=== PATIENT | male | born 1955 | race Caucasian/White ===

== ENCOUNTER 2022-01-08 15:30 | Observation (INO) | payer MEDICARE, SELFPAY ==
--- NOTE | 2022-01-08 | ECG_ITS ---
Test Reason : CP Blood Pressure : / mmHG Vent. Rate : 062 BPM Atrial Rate : 062 BPM P-R Int : 160 ms QRS Dur : 098 ms QT Int : 422 ms P-R-T Axes : 056 035 034 degrees QTc Int : 428 ms Normal sinus rhythm Nonspecific T wave abnormality Abnormal ECG No previous ECGs available Referred By: Generic ED Physician Electronically Signed By:JUAREZ AGUIRRE MD
--- NOTE | ~2022-01-08 | CT_ITS ---
EXAMINATION: CT ANGIOGRAM OF THE CHEST WITH AND WITHOUT CONTRAST (CT PULMONARY ANGIOGRAM FOR PE) CLINICAL INFORMATION: Chest pain and elevated d-dimer. COMPARISON: Chest radiograph done earlier today at 6:51 PM. TECHNIQUE: Prior to contrast administration, noncontrast localization images were obtained. Subsequently, multidetector volumetric imaging was performed from the thoracic inlet to below the diaphragms following the administration of 71 mL Omnipaque 350 intravenous contrast. No contrast reaction reported Sagittal, coronal, and MIP oblique sagittal reformatted images were obtained on the CT workstation, uploaded to PACS, and reviewed. This CT examination was performed using dose optimization techniques as appropriate, variously including the following: *Automated exposure control *Adjustment of mA and/or kV according to patient size (this includes techniques or standardized protocols for targeted exams where dose is matched to indication/reason for exam; i.e. extremities or head) *Use of iterative reconstruction technique Total exam dose-length product 449 mGy-cm FINDINGS: QUALITY OF STUDY/CONTRAST BOLUS: Satisfactory. PULMONARY ARTERIES: Segmental and subsegmental pulmonary emboli in the left lower lobe, right upper lobe, right middle lobe, and right lower lobe. No central pulmonary emboli. THORACIC AORTA: No aneurysm or dissection. LUNG: No focal consolidation or groundglass disease. No suspicious pulmonary nodules. There is a fissural lymph node node along the right minor fissure (7:329). The central airways are patent. PLEURA: No pleural effusion or pneumothorax. MEDIASTINUM: The right heart chambers are prominent. There is no septal bowing. No pericardial effusion. No mediastinal or hilar lymphadenopathy. Normal appearance of the thyroid gland. Coronary calcifications. CHEST WALL/AXILLA: No axillary or internal mammary lymphadenopathy. OSSEOUS STRUCTURES: No acute or suspicious osseous abnormality. UPPER ABDOMEN: Unremarkable. No reflux of contrast into the hepatic veins to suggest elevated right heart pressures. CT/CT angio chest PE protocol IMPRESSION: Multifocal segmental and subsegmental pulmonary emboli. The right heart chambers are prominent which raises the possibility of increased right-sided heart pressures. However, there is no definite septal bowing or reflux of contrast into the hepatic veins. If clinical pertinent, correlation with an echocardiogram could be obtained. No focal airspace opacities. This critical result was discussed with Alisia BLACKBURN at 01/08/2022 9:39 PM and it was ascertained that the content and urgency of the report was understood at the time of direct communication. VTE: positive
--- NOTE | ~2022-01-08 | US_ITS ---
EXAMINATION: US VENOUS ULTRASOUND WITH DOPPLER LOWER EXTREMITY, BILATERAL CLINICAL INFORMATION: Swelling status post recent travel COMPARISON: None TECHNIQUE: Ultrasound of the deep veins is performed from the hip to the calf with compression sonography and color and pulse Doppler assessment. Spectral analysis with color-flow imaging is performed. FINDINGS: RIGHT: There is normal venous compression and respiratory variation and augmented flow. The visualized common femoral vein, superficial femoral vein, profunda femoral vein, popliteal vein, and the trifurcation region shows no evidence of deep venous thrombosis. No Mullins's cyst. LEFT: There is normal venous compression and respiratory variation and augmented flow. The visualized common femoral vein, superficial femoral vein, profunda femoral vein, popliteal vein, and the trifurcation region shows no evidence of deep venous thrombosis. There is no significant popliteal fossa cyst. If the patient's symptoms persist, followup ultrasound in 5 days 7 days might be of value to exclude proximal propagation from a non-visualized calf vein. US/US venous duplex LE BI IMPRESSION: No DVT demonstrated in both lower extremity. Right-sided Mullins's cyst.
--- NOTE | ~2022-01-08 | XR_ITS ---
EXAMINATION: XR CHEST CLINICAL INFORMATION: Left-sided chest pain. COMPARISON: None. TECHNIQUE: 2 views of the chest were obtained. FINDINGS: Normal appearance of the cardiomediastinal silhouette. No focal airspace opacities, pleural effusions or pneumothorax. No acute osseous abnormalities. XR/XR chest 2V IMPRESSION: No acute cardiopulmonary findings.
[2022-01-08 15:39] VITALS: BP 148/85; PULSE 66; RESP 18; TEMP 36.2; O2SAT 100; BMI 36.1
[2022-01-08 16:03] LABS: Basophils Percent Auto 0.4 % (0-2); Eosinophils Absolute Auto 0.1 X10*3/uL (0.0-0.4); Eosinophils Percent Auto 1.3 % (0-4); Hematocrit 43.9 % (42.0-52.0); Hemoglobin 14.7 g/dl (14.0-18.0); Imm Gran Abs Auto 0.03 X10*3/uL (0.00-0.03); Imm Gran Pct Auto 0.4 % (0.0-0.4); Lymphocytes Absolute Auto 1.6 X10*3/uL (1.2-4.9); Lymphocytes Percent Auto 21.3 % (20-40); MANUAL DIFF FLAG NO; Mean Corpuscular HGB Conc 33.5 g/dl (31.0-36.0); Mean Corpuscular Hemoglobin 29.2 pg (27.0-33.0); Mean Corpuscular Volume 87.3 fL (80.0-98.0); Mean Platelet Volume 10.3 fL (9.4-12.4); Monocytes Absolute Auto 0.7 X10*3/uL (0.1-1.2); Monocytes Percent Auto 8.7 % (2-11); Neutrophils Absolute Auto 5.2 x10*3/uL (2.0-8.3); Neutrophils Percent Auto 67.9 % (45-73); Platelet Count 263 X10*3/uL (160-400); Red Blood Count 5.03 X10*6/uL (4.60-5.80); Red Cell Distribution Width 13.2 % (11.0-16.0); White Blood Count 7.7 X10*3/uL (4.8-10.8)
[2022-01-08 16:16] LABS: Anion Gap 12 (12-20); Blood Urea Nitrogen 14 mg/dL (9-16); Calcium 10.1 mg/dL (8.4-10.2); Carbon Dioxide 32 mmol/L (22-29); Chloride 100 mmol/L (96-108); Creatinine Clr Calc Pharmacy 92.6; Estimated Glomerular Filt Rate > 60; Glucose Random 100 mg/dL (60-115); Potassium 3.5 mmol/L (3.3-5.1); Sodium 140 mmol/L (135-145)
[2022-01-08 16:24] LABS: Troponin-I High Sensitivity 13.1 ng/L (<3.5-35.0)
--- NOTE | 2022-01-08 19:17 | ED_ITS ---
HPI - Chest Pain General Chief Complaint: Chest Pain Stated Complaint: chest pain Time Seen by Provider: 01/08/22 18:29 Source: patient and family Mode of arrival: ambulatory Limitations: no limitations History of Present Illness HPI narrative: 66-year-old male with a past medical history of hypertension and spinal stenosis who currently lives in [place] who recently traveled from [place] to [place] approximately 16 hours then was traveling back from [place] to [place] when he started having left-sided chest pain that he reported as achy/dull in sensation that lasted approximately 4 hours from 1 to approximately 16:00 prior to arrival which has completely resolved at this time. Reports that he was driving when this occurred. He reports that he has been suffering from lower extremity edema any has been having some bilateral calf pain. Otherwise He denied any other symptoms related to this such as dizziness, changes in vision, diaphoresis, headaches, jaw pain, nausea/vomiting, radiation of the chest pain, shoulder pain, paresthesias, palpitations, shortness of breath, dyspnea on exertion, orthopnea, cough, abdominal pain, worsening back pain, any estrogen usage, history of DVT or PE, history of MA or stroke, ever having this chest pain in the past, recent procedures or surgery or any other symptoms complaints or concerns at this time. He reports that his brother has had multiple cardiac stents. He reports his brother is older than him. MD complaint: chest pain Pertinent past history: other (See above) Onset (ago): hour(s) (Prior to arrival) Timing of current episode: episodic and now resolved Prior episodes: No Onset: other (While driving) Pain location: left chest Pain radiation: none Severity: mild Quality: aching and dull Relieving factors: nothing Exacerbating factors: nothing Context: other (Recent travel) Treatment prior to arrival: none Risk Factors Coronary artery disease risk factors: hypertension Thoracic aortic dissection risk factors: none Related Data Home Medications Medication Instructions Recorded Confirmed amlodipine 10 mg-atorvastatin 20 1 tab PO DAILY 01/08/22 01/08/22 mg tablet ascorbic acid (vitamin C) 500 mg 1,000 mg PO DAILY 01/08/22 01/08/22 tablet chlorthalidone 25 mg tablet 1 tab PO DAILY 01/08/22 01/08/22 ibuprofen 600 mg tablet 600 - 800 mg PO Q6H PRN 01/08/22 01/08/22 losartan 100 mg tablet 1 tab PO DAILY 01/08/22 01/08/22 tadalafil 20 mg tablet 1 tab PO DAILY PRN 01/08/22 01/08/22 Allergies Allergy/AdvReac Type Severity Reaction Status Date / Time No Known Allergies Allergy Verified 01/08/22 18:30 Review of Systems Review of Systems: Constitutional : No Weight loss, No Fever, No Chills, No Night Sweats, No Fatigue, No Malaise ENT/Mouth : No Hearing loss, No Ear Pain, No Nasal Congestion, No Sinus Pain, No Hoarseness, No sore throat, No Rhinorrhea, No Swallowing Difficulty Eyes: No Eye Pain, No Swelling, No Redness, No Foreign Body, No Discharge, No Vision Changes Cardiovascular : + resolve left-sided Chest Pain, No SOB, No Dyspnea on Exertion, No Orthopnea, No Edema, No Palpitations Respiratory : No Cough, No Sputum, No Wheezing, No Smoke Exposure, No Dyspnea Gastrointestinal : No Nausea, No Vomiting, No Diarrhea, No Constipation, No abdominal Pain, No Hematochezia, No Melena Genitourinary : no irregular bleeding, No Dysuria, No Urinary Frequency, No Hematuria, No Urinary Incontinence, No Urgency, No Flank Pain, No Urinary Flow Changes, No Hesitancy Musculoskeletal : No joint pain, No Myalgias, No Joint Swelling Skin : No Skin Lesions, No rash Neuro : No Weakness, No Numbness, No Paresthesias, No Loss of Consciousness, No Dizziness, No Headache Psych : No Anxiety/Panic, No Depression, No SI/HI/AH/VH, No Social Issues, Heme/Lymph: No Bruising, No Bleeding,No Lymphadenopathy Endocrine : No Polyuria, No Polydipsia, No Temperature Intolerance Yes all other systems are reviewed and are negative [facility] Past Medical History Attestation statement: The following information was validated with the patient. Medical History High cholesterol HTN (hypertension) Social History Social History Advance Directives: No Advance Directives Information Provided: No Physical Exam Vital Signs: Vital Signs: Last Vital Signs Temp 97.1 F 01/08/22 15:39 Pulse 59 01/08/22 19:41 Resp 16 01/08/22 19:41 BP 143/87 H 01/08/22 19:41 Pulse Ox 98 01/08/22 19:41 BMI result Body Mass Index 36.1 vital signs have been reviewed as normal and appeared to be correct. Blood pressure 145/85. Heart rate normal. Respiration rate normal. Temperature normal. Oxygen saturation normal. Appearance: Alert. Oriented X3. No acute distress. Head: Normal external exam. Normocephalic. Atraumatic. Eyes: PERRLA. EOMI. Conjunctiva and sclera normal. Eyelids normal. ENT: Pharynx normal. Uvula midline. Moist mucous membranes. Normal voice. No trismus noted. No drooling noted. No muffled voice noted. Neck: Normal inspection. Neck supple. FROM. No adenopathy. Thyroid Normal. No meningeal signs. No neck mass noted. CVS: Normal heart rate and rhythm. Heart sound normal. Pulses normal throughout. No murmurs/rales/gallops. Respiratory: No respiratory distress. Painless inspiration. Breath sounds normal. No wheezes/rales/rhonchi noted. Chest nontender. No crepitus is noted. No signs of trauma noted. No accessory muscle usage noted or decreased air movement noted. No signs of trauma. Abdomen: Soft and nontender. Bowel sounds normal in all 4 quadrants. No distention noted. No organomegaly noted. No visible injury noted. Back: No CVA tenderness. Full range of motion noted. Nontender. No signs of trauma. Patient neuro intact bilaterally and distally on all 4 extremities. Patient's reflexes intact bilaterally and distally on all 4 extremities. No rashes/lesion/induration/fluctuance or signs of infection noted. Skin: Skin warm and dry. Normal skin color. Normal skin turgor. No rashes/lesions/lacerations noted. Extremities: +1 LE edema. + bilateral calf tenderness. Extremities exhibit normal range of motion and nontender. Neuro: Oriented X 3. No motor deficit. No sensory deficit. Reflexes normal. Normal steady gait. No focal neuro deficits noted. CN's II-XII intact bilaterally? Vascular: + radial pulses/+ 2 distal pedal pulses/+2 dorsalis pedis b/l. Normal cap refill. No cyanosis noted to upper extremity nails and lower extremity toes nails. Course Course Course Narrative: 18:30pm - 66-year-old male with a past medical history of hypertension and spinal stenosis who currently lives in [place] who recently traveled from [facility] to [place] approximately 16 hours then was traveling back from [place] to [place] when he started having left-sided chest pain that he reported as achy/dull in sensation that lasted approximately 4 hours from 1 to approximately 16:00 prior to arrival which has completely resolved at this time. Reports that he was driving when this occurred. He reports that he has been suffering from lower extremity edema any has been having some bilateral calf pain. Labs were obtained while the patient was in the waiting room and carbon dioxide 32. Troponin 13.1 otherwise all other labs are within normal limits. Plan: Will add a repeat troponin along with liver enzymes, magnesium, PT/INR, D-dimer, a chest x-ray and bilateral duplex ultrasound of lower extremity then re-evaluate. Reevaluation(s) Reevaluation #1: - chest x-ray within normal limits no acute processes noted. - Duplex ultrasound of bilateral lower extremity negative for DVT revealed right Mullins cyst otherwise no other acute processes noted. - patient D-dimer elevated therefore will obtain a CT of chest for possible PE. - total bilirubin 1.5. - repeat troponin and BNP pending at this time. Time: 20:04 Reevaluation #2: - repeat troponin 11.1 therefore negative delta. - CTA of chest for PE revealed multi focal segmental and subsegmental pulmonary emboli. Increased right-sided heart pressures although no septal bowing. No focal airspace opacities. Otherwise no other acute processes. - therefore at this time I discussed this case with Dr. Alan and Dr. Gordon and we will start the patient on Lovenox 1 mg/kg. - patient's is at bedside who is an ICU nurse in [place] and they initially wanted to be discharged and drive to [place] to receive medical care there although I was able to convince them to stay here and receive care here for at least the next few days until he is more stable before he drives another 2-3 hours to [place]. Therefore patient will be admitted for pulmonary embolism started on Lovenox. Dr. Wadeeh to admit at this time. Patient and understand agree this plan and Dr. Alan understands and agrees with this plan as well. Time: 22:11 [facility] - Chest Pain Medical Records Data Attestation: I reviewed the patient's medical records. Lab Data Attestation: I reviewed the patient's lab results. Result diagrams: 01/08/22 15:57 01/08/22 15:57 Labs: Lab Results 01/08/22 01/08/22 01/08/22 Range/Units 15:57 15:57 15:57 WBC 7.7 (4.8-10.8) X10*3/uL RBC 5.03 (4.60-5.80) X10*6/uL Hgb 14.7 (14.0-18.0) g/dl Hct 43.9 (42.0-52.0) % MCV 87.3 (80.0-98.0) fL MCH 29.2 (27.0-33.0) pg MCHC 33.5 (31.0-36.0) g/dl RDW 13.2 (11.0-16.0) % Plt Count 263 (160-400) X10*3/uL MPV 10.3 (9.4-12.4) fL Immature Gran % (Auto) 0.4 (0.0-0.4) % Neut % (Auto) 67.9 (45-73) % Lymph % (Auto) 21.3 (20-40) % Charles % (Auto) 8.7 (2-11) % Eos % (Auto) 1.3 (0-4) % Baso % (Auto) 0.4 (0-2) % Lymph # (Auto) 1.6 (1.2-4.9) X10*3/uL Charles # (Auto) 0.7 (0.1-1.2) X10*3/uL Eos # (Auto) 0.1 (0.0-0.4) X10*3/uL Baso # (Auto) 0.0 (0.0-0.2) X10*3/uL Abs Immat Gran (auto) 0.03 (0.00-0.03) X10*3/uL Absolute Neuts (auto) 5.2 (2.0-8.3) x10*3/uL Absolute Nucleated RBC 0.000 (0.0-0.012) X10*3/uL Nucleated RBC % (auto) 0.0 (0.0-0.2) /100WBC PT (9.9-13.0) SEC INR (0.9-1.1) APTT (24.1-38.0) SEC D-Dimer High Sensitivty NG/ML Sodium 140 (135-145) mmol/L Potassium 3.5 (3.3-5.1) mmol/L Chloride 100 (96-108) mmol/L Carbon Dioxide 32 H (22-29) mmol/L Anion Gap 12 (12-20) BUN 14 (9-16) mg/dL Creatinine 1.16 (0.5-1.4) mg/dL Estim Creat Clear Calc 92.6 Estimated GFR > 60 Random Glucose 100 (60-115) mg/dL Calcium 10.1 (8.4-10.2) mg/dL Magnesium (1.6-2.6) mg/dL Total Bilirubin (0.0-1.0) mg/dL Direct Bilirubin (0.0-0.5) mg/dL AST (5-37) U/L ALT (0-40) U/L Alkaline Phosphatase (39-117) U/L Troponin I High Sens 13.1 (<3.5-35.0) ng/L B-Natriuretic Peptide (<100) pg/mL Total Protein (6.5-8.0) g/dL Albumin (3.5-5.0) g/dL 01/08/22 01/08/22 01/08/22 Range/Units 19:40 19:40 19:40 WBC (4.8-10.8) X10*3/uL RBC (4.60-5.80) X10*6/uL Hgb (14.0-18.0) g/dl Hct (42.0-52.0) % MCV (80.0-98.0) fL MCH (27.0-33.0) pg MCHC (31.0-36.0) g/dl RDW (11.0-16.0) % Plt Count (160-400) X10*3/uL MPV (9.4-12.4) fL Immature Gran % (Auto) (0.0-0.4) % Neut % (Auto) (45-73) % Lymph % (Auto) (20-40) % Charles % (Auto) (2-11) % Eos % (Auto) (0-4) % Baso % (Auto) (0-2) % Lymph # (Auto) (1.2-4.9) X10*3/uL Charles # (Auto) (0.1-1.2) X10*3/uL Eos # (Auto) (0.0-0.4) X10*3/uL Baso # (Auto) (0.0-0.2) X10*3/uL Abs Immat Gran (auto) (0.00-0.03) X10*3/uL Absolute Neuts (auto) (2.0-8.3) x10*3/uL Absolute Nucleated RBC (0.0-0.012) X10*3/uL Nucleated RBC % (auto) (0.0-0.2) /100WBC PT 11.7 (9.9-13.0) SEC INR 1.0 (0.9-1.1) APTT 34.7 (24.1-38.0) SEC D-Dimer High Sensitivty 613 NG/ML Sodium (135-145) mmol/L Potassium (3.3-5.1) mmol/L Chloride (96-108) mmol/L Carbon Dioxide (22-29) mmol/L Anion Gap (12-20) BUN (9-16) mg/dL Creatinine (0.5-1.4) mg/dL Estim Creat Clear Calc Estimated GFR Random Glucose (60-115) mg/dL Calcium (8.4-10.2) mg/dL Magnesium (1.6-2.6) mg/dL Total Bilirubin (0.0-1.0) mg/dL Direct Bilirubin (0.0-0.5) mg/dL AST (5-37) U/L ALT (0-40) U/L Alkaline Phosphatase (39-117) U/L Troponin I High Sens 11.1 (<3.5-35.0) ng/L B-Natriuretic Peptide (<100) pg/mL Total Protein (6.5-8.0) g/dL Albumin (3.5-5.0) g/dL 01/08/22 01/08/22 Range/Units 19:40 19:40 WBC (4.8-10.8) X10*3/uL RBC (4.60-5.80) X10*6/uL Hgb (14.0-18.0) g/dl Hct (42.0-52.0) % MCV (80.0-98.0) fL MCH (27.0-33.0) pg MCHC (31.0-36.0) g/dl RDW (11.0-16.0) % Plt Count (160-400) X10*3/uL MPV (9.4-12.4) fL Immature Gran % (Auto) (0.0-0.4) % Neut % (Auto) (45-73) % Lymph % (Auto) (20-40) % Charles % (Auto) (2-11) % Eos % (Auto) (0-4) % Baso % (Auto) (0-2) % Lymph # (Auto) (1.2-4.9) X10*3/uL Charles # (Auto) (0.1-1.2) X10*3/uL Eos # (Auto) (0.0-0.4) X10*3/uL Baso # (Auto) (0.0-0.2) X10*3/uL Abs Immat Gran (auto) (0.00-0.03) X10*3/uL Absolute Neuts (auto) (2.0-8.3) x10*3/uL Absolute Nucleated RBC (0.0-0.012) X10*3/uL Nucleated RBC % (auto) (0.0-0.2) /100WBC PT (9.9-13.0) SEC INR (0.9-1.1) APTT (24.1-38.0) SEC D-Dimer High Sensitivty NG/ML Sodium (135-145) mmol/L Potassium (3.3-5.1) mmol/L Chloride (96-108) mmol/L Carbon Dioxide (22-29) mmol/L Anion Gap (12-20) BUN (9-16) mg/dL Creatinine (0.5-1.4) mg/dL Estim Creat Clear Calc Estimated GFR Random Glucose (60-115) mg/dL Calcium (8.4-10.2) mg/dL Magnesium 1.9 (1.6-2.6) mg/dL Total Bilirubin 1.5 H (0.0-1.0) mg/dL Direct Bilirubin 0.5 (0.0-0.5) mg/dL AST 22 (5-37) U/L ALT 26 (0-40) U/L Alkaline Phosphatase 57 (39-117) U/L Troponin I High Sens (<3.5-35.0) ng/L B-Natriuretic Peptide 29 (<100) pg/mL Total Protein 6.4 L (6.5-8.0) g/dL Albumin 4.1 (3.5-5.0) g/dL Imaging Data Chest x-ray: Attestation: I personally reviewed and interpreted this imaging study as follows: Radiologist's impression: FINDINGS: Normal appearance of the cardiomediastinal silhouette. No focal airspace opacities, pleural effusions or pneumothorax. No acute osseous abnormalities. XR/XR chest 2V IMPRESSION: No acute cardiopulmonary findings. ? Venous duplex ultrasound of bilateral lower extremity: Attestation: I personally reviewed and interpreted this imaging study as follows: Radiologist's impression: FINDINGS: RIGHT: There is normal venous compression and respiratory variation and augmented flow. The visualized common femoral vein, superficial femoral vein, profunda femoral vein, popliteal vein, and the trifurcation region shows no evidence of deep venous thrombosis. ? No Mullins's cyst. LEFT: There is normal venous compression and respiratory variation and augmented flow. The visualized common femoral vein, superficial femoral vein, profunda femoral vein, popliteal vein, and the trifurcation region shows no evidence of deep venous thrombosis. ? There is no significant popliteal fossa cyst. If the patient's symptoms persist, followup ultrasound in 5 days 7 days might be of value to exclude proximal propagation from a non-visualized calf vein. US/US venous duplex LE BI IMPRESSION: No DVT demonstrated in both lower extremity. Right-sided Mullins's cyst. CTA of chest for PE: Attestation: I personally reviewed and interpreted this imaging study as follows: Radiologist's impression: FINDINGS: QUALITY OF STUDY/CONTRAST BOLUS: Satisfactory. PULMONARY ARTERIES: Segmental and subsegmental pulmonary emboli in the left lower lobe, right upper lobe, right middle lobe, and right lower lobe. No central pulmonary emboli.? THORACIC AORTA: No aneurysm or dissection. LUNG: No focal consolidation or groundglass disease. No suspicious pulmonary nodules. There is a fissural lymph node node along the right minor fissure (7:329). The central airways are patent. PLEURA: No pleural effusion or pneumothorax. MEDIASTINUM: The right heart chambers are prominent. There is no septal bowing. No pericardial effusion. No mediastinal or hilar lymphadenopathy. Normal appearance of the thyroid gland. Coronary calcifications. CHEST WALL/AXILLA: No axillary or internal mammary lymphadenopathy. OSSEOUS STRUCTURES: No acute or suspicious osseous abnormality.? UPPER ABDOMEN: Unremarkable.? No reflux of contrast into the hepatic veins to suggest elevated right heart pressures. CT/CT angio chest PE protocol IMPRESSION: Multifocal segmental and subsegmental pulmonary emboli. ? The right heart chambers are prominent which raises the possibility of increased right-sided heart pressures. However, there is no definite septal bowing or reflux of contrast into the hepatic veins. If clinical pertinent, correlation with an echocardiogram could be obtained. ? No focal airspace opacities. ? This critical result was discussed with Alisia BLACKBURN at 01/08/2022 9:39 PM and it was ascertained that the content and urgency of the report was understood at the time of direct communication. ? VTE: positive ECG Data ECG #1: Attestation: I personally reviewed and interpreted this ECG as follows: ECG interpretation date: 01/08/22 ECG interpretation time: 15:44 Interpretation: Normal sinus rhythm with nonspecific T-wave abnormalities with a ventricular rate of 62 otherwise no acute ischemic change are noted. No prior EKGs to compare to at this time. Critical Care Time Critical Care Time Critical Care Time: Yes Total Critical Care Time: 60 Attestation: I personally attest to this time spent taking care of the patient Discharge Plan Discharge Clinical Impression: Pulmonary embolism, Chest pain, Synovial cyst of popliteal space [Mullins], right knee Patient Disposition: Admitted As Inpatient
[2022-01-08 19:41] VITALS: BP 143/87; PULSE 59; RESP 16; O2SAT 98
[2022-01-08 19:55] LABS: Prothrombin Time 11.7 SEC (9.9-13.0)
[2022-01-08 19:57] LABS: D Dimer High Sensitivity 613 NG/ML
[2022-01-08 20:02] LABS: Alanine Aminotransferase 26 U/L (0-40); Albumin Level 4.1 g/dL (3.5-5.0); Alkaline Phosphatase 57 U/L (39-117); Aspartate Amino Transferase 22 U/L (5-37); Bilirubin Direct 0.5 mg/dL (0.0-0.5); Bilirubin Total 1.5 mg/dL (0.0-1.0); Magnesium 1.9 mg/dL (1.6-2.6); Total Protein 6.4 g/dL (6.5-8.0)
[2022-01-08 20:09] LABS: B Type Natriuretic Peptide 29 pg/mL (<100); Troponin-I High Sensitivity 11.1 ng/L (<3.5-35.0)
[2022-01-08] MEDS: iohexoL 350 MG/ML 100 ML INFUS..BTL IV (21:06)
[2022-01-08 22:05] LABS: Partial Thromboplastin Time 34.7 SEC (24.1-38.0)
--- NOTE | 2022-01-08 22:22 | PHA.MEDREC ---
Pharmacy Consult ? Medication Reconciliation Pharmacy has completed the medication reconciliation.
[2022-01-08 23:15] VITALS: BP 141/78; PULSE 61; RESP 15; TEMP 36.7; O2SAT 98
--- NOTE | 2022-01-09 00:12 | P.HPHOSP_ITS ---
History of Present Illness Date of Service: 01/09/22 Chief Complaint: chest pain This is a 66-year-old male with past medical history of HTN, HLD, asthma presents to the hospital with complaints of chest pain. Patient reports that he was traveling back from [place] to [place] when he started developi ng left-sided dull achy pain that was 2/10 but constant, therefore he decided to stop here for evaluation. He reports no shortness of breath, no dizziness, no palpitations, reports history of spinal stenosis therefore has chronic on and off pain in his legs that has not changed recently, he reports chronic swelling in his callus that has not worsened, no pain in his scales at this time unless he is standing and walking. But according to the patient that could be also chronic secondary to spinal stenosis. On arrival to the ED patient is hemodynamically stable with no significant abnormal vitals Labs are significant for bilirubin of 1.5 CT angiogram of the chest shows multifocal segmental and subsegmental pulmonary emboli the right heart chambers are prominent which raises the possibility of increased right-sided heart pressure however there is no definite septal bowing or reflux of contrast into the hepatic veins. Patient started on Lovenox and will be admitted for further management Review of Systems Review of Systems: Yes all other systems are reviewed and are negative [facility] Medical History (Updated 01/08/22 @ 22:20 by BERE Castaneda) High cholesterol HTN (hypertension) Family History (Updated 01/09/22 @ 07:45 by Selam Chase MD) Mother Diabetes CVA (cerebral vascular accident) Myocardial infarction Father CVA (cerebral vascular accident) Surgical History (Updated 01/09/22 @ 07:45 by Selam Chase MD) H/O elbow surgery H/O knee surgery Social History Advance Directives: No Advance Directives Information Provided: No Meds Allergies Allergy/AdvReac Type Severity Reaction Status Date / Time No Known Allergies Allergy Verified 01/08/22 18:30 Active Medications: Current Medications Acetaminophen (Acetaminophen 325 Mg Tablet) 650 mg PO Q6H PRN PRN Reason: Pain, Mild (Pain Scale 1-3) Enoxaparin Sodium (Enoxaparin Sodium 150 Mg/Ml Syringe) 135 mg 1 mg/kg (135 mg) SUBCUT Q12H ARELY Ondansetron HCl (Ondansetron Hcl 4 Mg/2 Ml Vial) 4 mg IVPUSH Q8H PRN PRN Reason: Nausea and Vomiting Pharmacy Consult (Consult Rx Perform Med Rec) 1 each MISCELLANE ONCE PRN PRN Reason: Consult order Sodium Chloride (0.9 % Sodium Chloride Flush 3 Ml Syringe) 3 ml IVFLUSH QSHIFT [facility] Home Medications Medication Instructions Recorded Confirmed Last Taken Type amlodipine 10 mg-atorvastatin 20 1 tab PO DAILY 01/08/22 01/08/22 01/08/22 History mg tablet ascorbic acid (vitamin C) 500 mg 1,000 mg PO DAILY 01/08/22 01/08/22 01/08/22 History tablet chlorthalidone 25 mg tablet 1 tab PO DAILY 01/08/22 01/08/22 01/08/22 History ibuprofen 600 mg tablet 600 - 800 mg PO Q6H PRN 01/08/22 01/08/22 01/08/22 History losartan 100 mg tablet 1 tab PO DAILY 01/08/22 01/08/22 01/08/22 History tadalafil 20 mg tablet 1 tab PO DAILY PRN 01/08/22 01/08/22 Unknown History Physical Exam Vital Signs and Narrative: Vital Signs: Last Vital Signs Temp 98.0 F 01/08/22 23:15 Pulse 61 01/08/22 23:15 Resp 15 01/08/22 23:15 BP 141/78 H 01/08/22 23:15 Pulse Ox 98 01/08/22 23:15 BMI result Body Mass Index 36.1 Const: General: cooperative and no acute distress Orientation/consciousness: patient oriented x3 Eyes: General: appearance normal, both eyes and all related structures Pupils: Equal, round and reactive pupils present Resp: Effort & Inspection: normal respiratory effort Auscultation: clear to auscultation bilaterally Cardio: Rate: regular rate Rhythm: regular rhythm GI: Palpation (GI): Soft to palpation Auscultation: normal bowel sounds Skin: General skin exam: no rashes or lesions noted Neuro: General: patient oriented x3 Cranial nerves: Yes Equal, round and reactive pupils present Cognition (Neuro): normal cognition Extrem: Other: no calf tenderness General: Yes normal to inspection and Yes no pedal edema Results Labs CBC and Chem 7: 01/09/22 05:43 01/09/22 05:43 Labs: Laboratory Results - last 24 hr 01/08/22 01/08/22 01/08/22 15:57 15:57 15:57 MCV 87.3 MCH 29.2 MCHC 33.5 RDW 13.2 Plt Count 263 MPV 10.3 Immature Gran % (Auto) 0.4 Neut % (Auto) 67.9 Lymph % (Auto) 21.3 Johnston % (Auto) 8.7 Eos % (Auto) 1.3 Baso % (Auto) 0.4 Lymph # (Auto) 1.6 Johnston # (Auto) 0.7 Eos # (Auto) 0.1 Baso # (Auto) 0.0 Abs Immat Gran (auto) 0.03 Absolute Neuts (auto) 5.2 Absolute Nucleated RBC 0.000 Nucleated RBC % (auto) 0.0 PT INR APTT D-Dimer High Sensitivty Anion Gap 12 Estim Creat Clear Calc 92.6 Estimated GFR > 60 Random Glucose 100 Calcium 10.1 Magnesium Total Bilirubin Direct Bilirubin AST ALT Alkaline Phosphatase Troponin I High Sens 13.1 B-Natriuretic Peptide Total Protein Albumin 01/08/22 01/08/22 01/08/22 19:40 19:40 19:40 MCV MCH MCHC RDW Plt Count MPV Immature Gran % (Auto) Neut % (Auto) Lymph % (Auto) Johnston % (Auto) Eos % (Auto) Baso % (Auto) Lymph # (Auto) Johnston # (Auto) Eos # (Auto) Baso # (Auto) Abs Immat Gran (auto) Absolute Neuts (auto) Absolute Nucleated RBC Nucleated RBC % (auto) PT 11.7 INR 1.0 APTT 34.7 D-Dimer High Sensitivty 613 Anion Gap Estim Creat Clear Calc Estimated GFR Random Glucose Calcium Magnesium Total Bilirubin Direct Bilirubin AST ALT Alkaline Phosphatase Troponin I High Sens 11.1 B-Natriuretic Peptide Total Protein Albumin 01/08/22 01/08/22 19:40 19:40 MCV MCH MCHC RDW Plt Count MPV Immature Gran % (Auto) Neut % (Auto) Lymph % (Auto) Johnston % (Auto) Eos % (Auto) Baso % (Auto) Lymph # (Auto) Johnston # (Auto) Eos # (Auto) Baso # (Auto) Abs Immat Gran (auto) Absolute Neuts (auto) Absolute Nucleated RBC Nucleated RBC % (auto) PT INR APTT D-Dimer High Sensitivty Anion Gap Estim Creat Clear Calc Estimated GFR Random Glucose Calcium Magnesium 1.9 Total Bilirubin 1.5 H Direct Bilirubin 0.5 AST 22 ALT 26 Alkaline Phosphatase 57 Troponin I High Sens B-Natriuretic Peptide 29 Total Protein 6.4 L Albumin 4.1 Imaging Radiologist's Impressions: Impressions Chest X-Ray 01/08/22 18:51 IMPRESSION: No acute cardiopulmonary findings. Venous Duplex 01/08/22 19:23 IMPRESSION: No DVT demonstrated in both lower extremity. Right-sided Mullins's cyst. Chest CTA 01/08/22 21:13 IMPRESSION: Multifocal segmental and subsegmental pulmonary emboli. The right heart chambers are prominent which raises the possibility of increased right-sided heart pressures. However, there is no definite septal bowing or reflux of contrast into the hepatic veins. If clinical pertinent, correlation with an echocardiogram could be obtained. No focal airspace opacities. This critical result was discussed with Alisia BLACKBURN at 01/08/2022 9:39 PM and it was ascertained that the content and urgency of the report was understood at the time of direct communication. VTE: positive Assessment and Plan (1) Pulmonary embolism: Status: Acute (2) Chest pain: Status: Acute Plan 66-year-old male with history of hypertension hyperlipidemia presents to the hospital with chest pain found to have PE # acute PE - likely provoked in the setting of long distance travel - patient started on Lovenox - since of right heart strain will obtain echocardiogram - BNP normal # hypertension - stable - continue home medications DVT prophylaxis: Lovenox Quality Stroke Does the patient have a stroke diagnosis?: No VTE Prior VTE?: No VTE Risk Level:: Medical - moderate - high VTE Device Contraindication: Treatment Not Indicated VTE Drug Contraindication: N/A - Med Ordered
[2022-01-09 00:45] LABS: Prothrombin Time 11.9 SEC (9.9-13.0)
[2022-01-09 00:47] LABS: Partial Thromboplastin Time 34.8 SEC (24.1-38.0)
[2022-01-09] MEDS: Enoxaparin Sodium 100 MG/ML SYRINGE 135 MG SUBCUT ×2 (01:08→12:58)
[2022-01-09 03:48] LABS: COVID-19 Test Negative (Negative)
[2022-01-09 04:00] VITALS: BP 141/76; PULSE 52; RESP 14; TEMP 36.5; O2SAT 98
[2022-01-09 06:01] LABS: MANUAL DIFF FLAG NO
[2022-01-09 06:03] LABS: Basophils Percent Auto 0.3 % (0-2); Eosinophils Absolute Auto 0.1 X10*3/uL (0.0-0.4); Eosinophils Percent Auto 1.7 % (0-4); Imm Gran Abs Auto 0.03 X10*3/uL (0.00-0.03); Imm Gran Pct Auto 0.4 % (0.0-0.4); Lymphocytes Absolute Auto 1.5 X10*3/uL (1.2-4.9); Lymphocytes Percent Auto 21.3 % (20-40); Mean Corpuscular HGB Conc 34.1 g/dl (31.0-36.0); Mean Corpuscular Hemoglobin 29.5 pg (27.0-33.0); Mean Corpuscular Volume 86.3 fL (80.0-98.0); Mean Platelet Volume 10.9 fL (9.4-12.4); Monocytes Absolute Auto 0.6 X10*3/uL (0.1-1.2); Monocytes Percent Auto 8.9 % (2-11); Neutrophils Absolute Auto 4.6 x10*3/uL (2.0-8.3); Neutrophils Percent Auto 67.4 % (45-73); Platelet Count 238 X10*3/uL (160-400); Red Blood Count 4.75 X10*6/uL (4.60-5.80); White Blood Count 6.9 X10*3/uL (4.8-10.8)
[2022-01-09 06:23] LABS: Anion Gap 12 (12-20); Blood Urea Nitrogen 12 mg/dL (9-16); Calcium 9.3 mg/dL (8.4-10.2); Carbon Dioxide 28 mmol/L (22-29); Chloride 102 mmol/L (96-108); Estimated Glomerular Filt Rate > 60; Glucose Random 98 mg/dL (60-115); Potassium 3.4 mmol/L (3.3-5.1); Sodium 139 mmol/L (135-145)
[2022-01-09] MEDS: Atorvastatin Calcium 20 MG TABLET PO (09:57)
[2022-01-09] MEDS: hydroCHLOROthiazide 25 MG TABLET PO (09:57)
[2022-01-09] MEDS: Losartan Potassium 50 MG TABLET 100 MG PO (09:57)
[2022-01-09] MEDS: amLODIPine Besylate 10 MG TABLET PO (09:57)
[2022-01-09] MEDS: 0.9 % Sodium Chloride Flush 3 ML SYRINGE IVFLUSH (10:01)
--- NOTE | 2022-01-09 11:16 | PM.DS ---
DS: Providers Provider Date of Service: 01/09/22 Date of admission: 01/09/22 00:07 Date of discharge: 01/09/22 Primary care physician: Unknown Physician DS: Diagnosis Discharge Diagnosis (1) Pulmonary embolism: Status: Acute (2) Chest pain: Status: Acute DS: Summary Hospital Course Hospital Course: This is a 66-year-old male with past medical history of HTN, HLD, asthma presents to the hospital with complaints of chest pain.? Patient reports that he was traveling back from [place] to [place] when he started developing left-sided dull achy pain that was 2/10 but constant, therefore he decided to stop here for evaluation.? He reports no shortness of breath, no dizziness, no palpitations, reports history of spinal stenosis therefore has chronic on and off pain in his legs that has not changed recently, he reports chronic swelling in his callus that has not worsened, no pain in his scales at this time unless he is standing and walking.? But according to the patient that could be also chronic secondary to spinal stenosis.? On arrival to the ED patient is hemodynamically stable with no significant abnormal vitals Labs are significant for bilirubin of 1.5 CT angiogram of the chest shows multifocal segmental and subsegmental pulmonary emboli the right heart chambers are prominent which raises the possibility of increased right-sided heart pressure however there is no definite septal bowing or reflux of contrast into the hepatic veins. Bilateral venous duplex negative Hospital Course Uneventful night. Remains hemodynamically stable in the absence of chest pain. No O2 requirement. Patient is wishing to be discharged to follow-up with his PCP. Call placed to Hematology (Dr. Renae) who agreed it was acceptable for patient to be discharged on Lovenox and follow up with his PCP. (significant other is [employer] and more than qualified to given injections) Time Spent with Patient Time attestation: Total time spent providing and/or coordinating discharge services: Discharge coordination time: Greater than 30 minutes Quality: Safe Use of Opioids Does Pt have an Active Cancer Diagnosis on the Problem List?: No Quality: Stroke Does the patient have a stroke diagnosis?: No Physical Exam Vital Signs: Vital Signs: Last Vital Signs Temp 97.7 F 01/09/22 04:00 Pulse 52 01/09/22 04:00 Resp 14 01/09/22 04:00 BP 141/76 H 01/09/22 04:00 Pulse Ox 98 04/24/22 04:00 BMI result Body Mass Index 36.1 Const: Other: Awake alert oriented x3 no acute distress Resp: Other: Clear to auscultation bilaterally no rales rhonchi or wheezes Cardio: Other: No S4; positive S1-S2; no S3 murmurs or gallops GI: Other: Soft nontender nondistended with normoactive bowel sounds Extrem: Other: No edema bilaterally DS: Data Data Completed and Pending Labs on day of discharge: Laboratory Results - last 24 hr 01/08/22 01/08/22 01/08/22 15:57 15:57 15:57 WBC 7.7 RBC 5.03 Hgb 14.7 Hct 43.9 MCV 87.3 MCH 29.2 MCHC 33.5 RDW 13.2 Plt Count 263 MPV 10.3 Immature Gran % (Auto) 0.4 Neut % (Auto) 67.9 Lymph % (Auto) 21.3 Phillips % (Auto) 8.7 Eos % (Auto) 1.3 Baso % (Auto) 0.4 Lymph # (Auto) 1.6 Phillips # (Auto) 0.7 Eos # (Auto) 0.1 Baso # (Auto) 0.0 Abs Immat Gran (auto) 0.03 Absolute Neuts (auto) 5.2 Absolute Nucleated RBC 0.000 Nucleated RBC % (auto) 0.0 PT INR APTT D-Dimer High Sensitivty Sodium 140 Potassium 3.5 Chloride 100 Carbon Dioxide 32 H Anion Gap 12 BUN 14 Creatinine 1.16 Estim Creat Clear Calc 92.6 Estimated GFR > 60 Random Glucose 100 Calcium 10.1 Magnesium Total Bilirubin Direct Bilirubin AST ALT Alkaline Phosphatase Troponin I High Sens 13.1 B-Natriuretic Peptide Total Protein Albumin COVID-19 (DARLINE) COVID-19 Clin Com 01/08/22 01/08/22 01/08/22 19:40 19:40 19:40 WBC RBC Hgb Hct MCV MCH MCHC RDW Plt Count MPV Immature Gran % (Auto) Neut % (Auto) Lymph % (Auto) Phillips % (Auto) Eos % (Auto) Baso % (Auto) Lymph # (Auto) Phillips # (Auto) Eos # (Auto) Baso # (Auto) Abs Immat Gran (auto) Absolute Neuts (auto) Absolute Nucleated RBC Nucleated RBC % (auto) PT 11.7 INR 1.0 APTT 34.7 D-Dimer High Sensitivty 613 Sodium Potassium Chloride Carbon Dioxide Anion Gap BUN Creatinine Estim Creat Clear Calc Estimated GFR Random Glucose Calcium Magnesium Total Bilirubin Direct Bilirubin AST ALT Alkaline Phosphatase Troponin I High Sens 11.1 B-Natriuretic Peptide Total Protein Albumin COVID-19 (DARLINE) COVID-19 Clin Com 01/08/22 01/08/22 01/09/22 19:40 19:40 00:23 WBC RBC Hgb Hct MCV MCH MCHC RDW Plt Count MPV Immature Gran % (Auto) Neut % (Auto) Lymph % (Auto) Phillips % (Auto) Eos % (Auto) Baso % (Auto) Lymph # (Auto) Phillips # (Auto) Eos # (Auto) Baso # (Auto) Abs Immat Gran (auto) Absolute Neuts (auto) Absolute Nucleated RBC Nucleated RBC % (auto) PT 11.9 INR 1.0 APTT 34.8 D-Dimer High Sensitivty Sodium Potassium Chloride Carbon Dioxide Anion Gap BUN Creatinine Estim Creat Clear Calc Estimated GFR Random Glucose Calcium Magnesium 1.9 Total Bilirubin 1.5 H Direct Bilirubin 0.5 AST 22 ALT 26 Alkaline Phosphatase 57 Troponin I High Sens B-Natriuretic Peptide 29 Total Protein 6.4 L Albumin 4.1 COVID-19 (DARLINE) COVID-19 Clin Com 01/09/22 01/09/22 01/09/22 03:27 05:43 05:43 WBC 6.9 RBC 4.75 Hgb 14.0 Hct 41.0 L MCV 86.3 MCH 29.5 MCHC 34.1 RDW 13.0 Plt Count 238 MPV 10.9 Immature Gran % (Auto) 0.4 Neut % (Auto) 67.4 Lymph % (Auto) 21.3 Phillips % (Auto) 8.9 Eos % (Auto) 1.7 Baso % (Auto) 0.3 Lymph # (Auto) 1.5 Phillips # (Auto) 0.6 Eos # (Auto) 0.1 Baso # (Auto) 0.0 Abs Immat Gran (auto) 0.03 Absolute Neuts (auto) 4.6 Absolute Nucleated RBC 0.000 Nucleated RBC % (auto) 0.0 PT INR APTT D-Dimer High Sensitivty Sodium 139 Potassium 3.4 Chloride 102 Carbon Dioxide 28 Anion Gap 12 BUN 12 Creatinine 0.88 Estim Creat Clear Calc 122.0 Estimated GFR > 60 Random Glucose 98 Calcium 9.3 D Magnesium Total Bilirubin Direct Bilirubin AST ALT Alkaline Phosphatase Troponin I High Sens B-Natriuretic Peptide Total Protein Albumin COVID-19 (DARLINE) Negative COVID-19 Clin Com See Note Discharge Plan Discharge Patient Disposition: Home, Self-Care Discharge Diagnosis: Pulmonary emboli Referrals: Physician,Unknown J [Primary Care Provider] - 1 Week Discharge Medications: New enoxaparin [Lovenox] 150 mg/mL syringe 150 mg subcut Q12H Qty: 14 1RF Continued chlorthalidone 25 mg tablet 1 tab PO DAILY 0RF losartan 100 mg tablet 1 tab PO DAILY 0RF amlodipine-atorvastatin 10-20 mg tablet 1 tab PO DAILY 0RF ascorbic acid (vitamin C) 500 mg Tablet 1,000 mg PO DAILY 0RF ibuprofen 600 mg Tablet 600 - 800 mg PO Q6H PRN (Reason: Pain) 0RF tadalafil 20 mg tablet 1 tab PO DAILY PRN (Reason: Sexual Activity) 0RF Discharge Orders: Discharge Order (Routine); Ordered 01/09/22 Ordered By: Can Rios Diet: advance to usual diet Activity on Discharge: As tolerated Stand Alone Forms: Patient Portal Discharge page Care Plan Goals: Continue Lovenox 140mg SC q12hrs. Call PCP in am for further directions. Health Concerns: Limit activity until re eval by PCP Plan of Treatment: Lovenox initially....your PCP will decide on oral therapies Assessment: see pb viera
--- NOTE | 2022-01-09 14:06 | MHC.CM.PN ---
Patient D/C'd prior to CM interview. MD order for home, self care. CM acknowledge.
== END 2022-01-09 13:44 | disposition home or self-care (01) ==
LOC: HO.ED 22:20 → HO.EDOVER 01-09 00:14
PROVIDERS: Physician Assistant Medical; Admitting Provider Internal Medicine; Emergency Provider Emergency Medicine Emergency Medical Services; Visit Provider Hospitalist
DX: I26.99 Other pulmonary embolism without acute cor pulmonale (principal); R07.9 Chest pain, unspecified; M71.21 Synovial cyst of popliteal space [Baker], right knee; R79.1 Abnormal coagulation profile; R94.31 Abnormal electrocardiogram [ECG] [EKG]; I10 Essential (primary) hypertension; E78.5 Hyperlipidemia, unspecified; E78.00 Pure hypercholesterolemia, unspecified; J45.909 Unspecified asthma, uncomplicated; M48.00 Spinal stenosis, site unspecified; Z20.822 Contact with and (suspected) exposure to COVID-19; Z79.01 Long term (current) use of anticoagulants; Z79.899 Other long term (current) drug therapy
CPT/HCPCS: 36415; 71046; 71275; 80048; 80076; 83735; 83880; 84484; 85025; 85379; 85610; 85730; 87635; 93005; 93970; 96372; 96374; 99219; 99284; 99291; J1650; Q9967